=== PATIENT | female | born 1965 | race Caucasian/White ===

== ENCOUNTER 2016-12-29 09:15 | Day surgery (SDC) | payer MEDICAID ==
[2016-12-29] MEDS ORDERED: Lactated Ringer's 500 ML IV ONE (09:57)
[2016-12-29 10:46] VITALS: TEMP 97
[2016-12-29] MEDS ORDERED: Midazolam 2 MG/2 ML VIAL ONE (11:17)
[2016-12-29] MEDS ORDERED: Propofol 10 mg/ml Inj (20 ML) ONE (11:17)
[2016-12-29 11:44] VITALS: PULSE 60
[2016-12-29 11:54] VITALS: BP 127/63; RESP 2
== END 2016-12-29 12:05 | disposition home or self-care (01) ==
LOC: H.ENDO 09:15
PROVIDERS: ATTEND Internal Medicine Gastroenterology
DX: Z12.11 Encounter for screening for malignant neoplasm of colon (principal); K57.30 Diverticulosis of large intestine without perforation or abscess without bleeding; K64.8 Other hemorrhoids; D12.4 Benign neoplasm of descending colon

== ENCOUNTER 2017-10-31 13:29 | Emergency (ER) | payer OTHER ==
[2017-10-31 13:35] VITALS: BMI 30.9
[2017-10-31] MEDS ORDERED: Naproxen 500 MG TAB PO STA (13:53)
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
[2017-10-31] MEDS ORDERED: Naproxen 500 MG TAB PO ONE (14:00)
[2017-10-31 15:16] VITALS: BP 138/81; PULSE 78; RESP 16; TEMP 98.2; O2SAT 98
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
--- NOTE | 2017-10-31 15:40 | RAD ---
PROCEDURE: Cervical Spine Radiographs. HISTORY: Pain. COMPARISON: None. FINDINGS: BONES: There is normal alignment of the cervical vertebral bodies. There is straightening of the cervical spine with loss of normal cervical lordosis. Vertebral height is normal. Bone mineralization is normal. There is no acute fracture or traumatic anterior listhesis. The craniocervical junction is normal. The atlantoaxial joint normal. DISC SPACES: There is multilevel degenerative disc disease at C5-6 and C6-7 with anterior spurring, reduced disc heights and facet arthropathy SOFT TISSUES: Normal. No prevertebral soft tissue swelling. OTHER FINDINGS: None. IMPRESSION: No acute fracture or traumatic anterior listhesis. Straightening of the cervical spine may be positional or related to muscle spasm. Multilevel degenerative disc disease at C5-6 and C6-7.
== END 2017-10-31 15:09 | disposition home or self-care (01) ==
LOC: H.ER 13:29
DX: S39.012A Strain of muscle, fascia and tendon of lower back, initial encounter (principal); S13.4XXA Sprain of ligaments of cervical spine, initial encounter; S53.402A Unspecified sprain of left elbow, initial encounter; V43.52XA Car driver injured in collision with other type car in traffic accident, initial encounter; Y92.410 Unspecified street and highway as the place of occurrence of the external cause